=== PATIENT | male | born 1990 | race Hispanic/Latino ===

== ENCOUNTER 2020-10-31 15:54 | Emergency (ER) | payer SELFPAY ==
[~2020-10-31] VITALS: Ht 172.7 cm; Wt 129.3 kg
[2020-10-31 15:56] VITALS: BP 144/87
[2020-10-31] MEDS ORDERED: CEPH500B PO (16:27)
[2020-10-31] MEDS ORDERED: CEFTRIAXONE 1G VIAL IM SCH (16:30)
[2020-10-31] MEDS ORDERED: LIDOCAINE HCL-MPF 1% 2ML VIAL ONE (16:30)
== END 2020-10-31 16:43 | disposition home or self-care (01) ==
LOC: EDH 15:54
DX: J02.9 Acute pharyngitis, unspecified (principal); Z90.49 Acquired absence of other specified parts of digestive tract
CPT/HCPCS: 96372; 99283; J0696; J3490